=== PATIENT | female | born 1985 | race Caucasian/White ===

== ENCOUNTER 2020-11-10 16:25 | Emergency (ER) | payer BC ==
[~2020-11-10] VITALS: Ht 160 cm; Wt 63.6 kg
[2020-11-10 18:16] LABS: URINE APPEARANCE HAZY; URINE COLOR YELLOW
[2020-11-10 18:17] LABS: URINE BILIRUBIN NEGATIVE (NEGATIVE); URINE BLOOD NEGATIVE (NEGATIVE); URINE GLUCOSE NEGATIVE (NEGATIVE); URINE KETONE 2+ (NEGATIVE); URINE LEUKOCYTE ESTERASE NEGATIVE (NEGATIVE); URINE MUCUS PRESENT (NOT PRESENT); URINE NITRATE NEGATIVE (NEGATIVE); URINE PROTEIN(semi-quant) 1+ mg/dL (NEGATIVE); URINE UROBILINOGEN NORMAL (NORMAL)
[2020-11-10] MEDS ORDERED: VYVANSE50 MG PO (18:17)
[2020-11-10] MEDS ORDERED: SPRINTEC 35 MCG1 TAB PO (18:18)
[2020-11-10 18:19] LABS: BASO # 0.02 (0.02-0.10); EOS # 0.03 (0.04-0.40); EOS % 0.3 % (1.0-5.0); HEMATOCRIT 44.4 % (37.0-47.0); HEMOGLOBIN 14.7 g/dL (12.5-16.0); LYMPH# 2.27 (1.50-4.00); MEAN CELL VOLUME 88 fl (78-100); MEAN CORPUSCULAR HEMOGLOBIN 29 pg (27-31); MEAN CORPUSCULAR HGB CONC 33 g/dL (33-37); MEAN PLATELET VOLUME 10.2 fl (7.4-10.4); MONO # 0.53 (0.20-0.80); NEU # 7.18 (1.40-6.50); PLATELET COUNT 298 K/mm3 (130-400); RED BLOOD COUNT 5.04 M/mm3 (4.10-5.30); RED CELL DISTRIBUTION WIDTH 12.6 % (11.5-14.5)
[2020-11-10 18:24] LABS: ALBUMIN 4.2 g/dL (3.5-5.0); POTASSIUM 4.6 mmol/L (3.5-5.1)
[2020-11-10 18:26] LABS: CALCIUM 10.2 mg/dL (8.3-10.5)
[2020-11-10 18:29] LABS: TOTAL BILIRUBIN 1.8 mg/dL (0.2-1.2)
[2020-11-10] MEDS ORDERED: PERCOCET 325 MG1 TA2 PO (21:21)
[2020-11-10] MEDS ORDERED: MACROBID 100 M100 MG PO (21:23)
[2020-11-10 21:44] VITALS: BP 172/90
== END 2020-11-10 21:44 | disposition home or self-care (01) ==
LOC: ED 16:25
PROVIDERS: Nurse Practitioner
DX: N39.0 Urinary tract infection, site not specified (principal); N28.9 Disorder of kidney and ureter, unspecified; Z87.442 Personal history of urinary calculi; Z20.822 Contact with and (suspected) exposure to COVID-19
CPT/HCPCS: J2405; J3010; J7030; Q9967

== ENCOUNTER 2021-01-20 04:56 | Emergency (ER) | payer BC ==
[~2021-01-20] VITALS: Ht 160 cm; Wt 63.6 kg
[~2021-01-20 04:56] MED LIST: MACROBID 100 M100 MG PO; PERCOCET 325 MG1 TA2 PO; SPRINTEC 35 MCG1 TAB PO; VYVANSE50 MG PO
[2021-01-20] MEDS ORDERED: ATOMOXETINE HCL40 MG PO (05:06)
[2021-01-20] MEDS ORDERED: NEXPLANON68 MG ID (05:49)
[2021-01-20 06:43] LABS: BASO # 0.05 K/mm3 (0.02-0.10); EOS # 0.64 K/mm3 (0.04-0.40); EOS % 7.2 % (1.0-5.0); HEMATOCRIT 45.5 % (37.0-47.0); HEMOGLOBIN 15.2 g/dL (12.5-16.0); LYMPH# 2.78 K/mm3 (1.50-4.00); MEAN CELL VOLUME 89 fl (78-100); MEAN CORPUSCULAR HEMOGLOBIN 30 pg (27-31); MEAN CORPUSCULAR HGB CONC 33 g/dL (33-37); MONO # 0.73 K/mm3 (0.20-0.80); NEU # 4.73 K/mm3 (1.40-6.50); PLATELET COUNT 292 K/mm3 (130-400); RED BLOOD COUNT 5.12 M/mm3 (4.10-5.30); RED CELL DISTRIBUTION WIDTH 12.4 % (11.5-14.5); WHITE BLOOD COUNT 8.9 K/mm3 (4.8-10.8)
[2021-01-20 06:59] LABS: ALBUMIN 4.5 g/dL (3.5-5.0); POTASSIUM 3.8 mmol/L (3.5-5.1)
[2021-01-20 07:00] LABS: CALCIUM 10.1 mg/dL (8.3-10.5)
[2021-01-20 07:01] LABS: TOTAL PROTEIN 7.9 g/dL (6.4-8.3)
[2021-01-20 07:03] LABS: TOTAL BILIRUBIN 2.6 mg/dL (0.2-1.2)
[2021-01-20 07:15] LABS: URINE APPEARANCE HAZY; URINE BILIRUBIN NEGATIVE (NEGATIVE); URINE BLOOD TRACE (NEGATIVE); URINE COLOR YELLOW; URINE GLUCOSE NEGATIVE (NEGATIVE); URINE KETONE NEGATIVE (NEGATIVE); URINE LEUKOCYTE ESTERASE TRACE (NEGATIVE); URINE NITRATE NEGATIVE (NEGATIVE); URINE PROTEIN(semi-quant) TRACE mg/dL (NEGATIVE); URINE UROBILINOGEN NORMAL (NORMAL)
[2021-01-20 07:16] LABS: URINE MUCUS PRESENT (NOT PRESENT)
[2021-01-20 07:30] LABS: D-DIMER 0.17 mg/L FEU (0.15-0.50)
[2021-01-20 08:29] VITALS: BP 123/93
== END 2021-01-20 08:02 | disposition home or self-care (01) ==
LOC: ED 04:56
PROVIDERS: Nurse Practitioner
DX: F41.9 Anxiety disorder, unspecified (principal); F90.9 Attention-deficit hyperactivity disorder, unspecified type; Z20.822 Contact with and (suspected) exposure to COVID-19; Z79.899 Other long term (current) drug therapy

== ENCOUNTER 2021-09-12 13:54 | Emergency (ER) | payer BC ==
[~2021-09-12] VITALS: Ht 160 cm; Wt 68.2 kg
[~2021-09-12 13:54] MED LIST changes: +ATOMOXETINE HCL40 MG PO; +NEXPLANON68 MG ID
[2021-09-12] MEDS ORDERED: ADDERALL 15 MG15 MG PO (14:06)
[2021-09-12] MEDS ORDERED: CEPHALEXIN250 MG PO (14:47)
[2021-09-12 15:15] VITALS: BP 164/109
== END 2021-09-12 15:17 | disposition home or self-care (01) ==
LOC: ED 13:54
DX: L03.114 Cellulitis of left upper limb (principal); L29.8 Other pruritus; Z91.040 Latex allergy status; Z88.1 Allergy status to other antibiotic agents

== ENCOUNTER 2021-11-05 09:20 | Emergency (ER) | payer BC ==
[~2021-11-05] VITALS: Ht 160 cm; Wt 70.5 kg
[~2021-11-05 09:20] MED LIST changes: +ADDERALL 15 MG15 MG PO; +CEPHALEXIN250 MG PO
[2021-11-05 09:28] VITALS: BP 144/109
[2021-11-05 09:51] LABS: BASO # 0.03 K/mm3 (0.02-0.10); EOS % 1.2 % (1.0-5.0); HEMATOCRIT 43.7 % (37.0-47.0); HEMOGLOBIN 14.6 g/dL (12.5-16.0); LYMPH# 1.42 K/mm3 (1.50-4.00); MEAN CELL VOLUME 87 fl (78-100); MEAN CORPUSCULAR HEMOGLOBIN 29 pg (27-31); MEAN CORPUSCULAR HGB CONC 33 g/dL (33-37); MEAN PLATELET VOLUME 9.6 fl (7.4-10.4); MONO # 0.43 K/mm3 (0.20-0.80); NEU # 6.57 K/mm3 (1.40-6.50); PLATELET COUNT 310 K/mm3 (130-400); RED BLOOD COUNT 5.01 M/mm3 (4.10-5.30); RED CELL DISTRIBUTION WIDTH 11.9 % (11.5-14.5); WHITE BLOOD COUNT 8.6 K/mm3 (4.8-10.8)
[2021-11-05 09:56] LABS: ALBUMIN 4.5 g/dL (3.5-5.0)
[2021-11-05 09:57] LABS: POTASSIUM 4.6 mmol/L (3.5-5.1)
[2021-11-05 09:58] LABS: CALCIUM 9.7 mg/dL (8.3-10.5)
[2021-11-05 09:59] LABS: TOTAL PROTEIN 7.5 g/dL (6.4-8.3)
[2021-11-05 10:18] LABS: TOTAL BILIRUBIN 2.2 mg/dL (0.2-1.2)
[2021-11-05] MEDS ORDERED: ZOFRAN ODT4 MG PO (10:56)
== END 2021-11-05 10:50 | disposition home or self-care (01) ==
LOC: ED 09:20
PROVIDERS: Nurse Practitioner
DX: K62.5 Hemorrhage of anus and rectum (principal); Z91.040 Latex allergy status

== ENCOUNTER 2021-12-10 16:29 | Emergency (ER) | payer BC ==
[~2021-12-10] VITALS: Ht 160 cm; Wt 69.4 kg
[~2021-12-10 16:29] MED LIST changes: +ZOFRAN ODT4 MG PO
[2021-12-10] MEDS ORDERED: PROPRANOLOL HYD60 M1 PO (17:33)
[2021-12-10 17:49] VITALS: BP 144/102
== END 2021-12-10 17:46 | disposition home or self-care (01) ==
LOC: ED 16:29
DX: F41.9 Anxiety disorder, unspecified (principal); R03.0 Elevated blood-pressure reading, without diagnosis of hypertension; Z91.040 Latex allergy status

== ENCOUNTER 2022-05-21 09:58 | Emergency (ER) | payer BC ==
[~2022-05-21] VITALS: Ht 160 cm; Wt 78.5 kg
[~2022-05-21 09:58] MED LIST changes: +PROPRANOLOL HYD60 M1 PO
[2022-05-21 11:14] LABS: BASO # 0.03 K/mm3 (0.02-0.10); EOS # 0.08 K/mm3 (0.04-0.40); EOS % 1.1 % (1.0-5.0); HEMOGLOBIN 15.8 g/dL (12.5-16.0); LYMPH# 1.92 K/mm3 (1.50-4.00); MEAN CELL VOLUME 91 fl (78-100); MEAN CORPUSCULAR HEMOGLOBIN 31 pg (27-31); MEAN CORPUSCULAR HGB CONC 34 g/dL (33-37); MEAN PLATELET VOLUME 9.7 fl (7.4-10.4); MONO # 0.59 K/mm3 (0.20-0.80); PLATELET COUNT 259 K/mm3 (130-400); RED BLOOD COUNT 5.15 M/mm3 (4.10-5.30); RED CELL DISTRIBUTION WIDTH 12.5 % (11.5-14.5); WHITE BLOOD COUNT 7.2 K/mm3 (4.8-10.8)
[2022-05-21 11:23] LABS: ALBUMIN 4.4 g/dL (3.5-5.0)
[2022-05-21 11:24] LABS: POTASSIUM 4.5 mmol/L (3.5-5.1); SODIUM 139 mmol/L (136-145)
[2022-05-21 11:26] LABS: GLUCOSE 102 mg/dL (65-105); TOTAL PROTEIN 8.3 g/dL (6.4-8.3)
[2022-05-21 11:27] LABS: CARBON DIOXIDE 24 mmol/L (22-29)
[2022-05-21 11:28] LABS: TOTAL BILIRUBIN 1.2 mg/dL (0.2-1.2)
[2022-05-21 11:31] LABS: AST-SGOT 97 U/L (5-34)
[2022-05-21 11:33] LABS: ALT/SGPT 142 U/L (0-55)
[2022-05-21 11:48] LABS: TROPONIN-I < 0.030 ng/mL (<0.030)
[2022-05-21 13:19] VITALS: BP 131/93
== END 2022-05-21 13:26 | disposition home or self-care (01) ==
LOC: ED 09:58
PROVIDERS: Family Medicine
DX: I16.1 Hypertensive emergency (principal); F90.9 Attention-deficit hyperactivity disorder, unspecified type; R74.01 Elevation of levels of liver transaminase levels; E66.9 Obesity, unspecified; Z68.30 Body mass index [BMI] 30.0-30.9, adult; Z91.040 Latex allergy status
CPT/HCPCS: J0360

== ENCOUNTER → 2022-07-10 | Outpatient (CLI) | payer BC ==
[2022-07-10 14:31] LABS: URINE APPEARANCE HAZY; URINE BILIRUBIN NEGATIVE (NEGATIVE); URINE BLOOD TRACE (NEGATIVE); URINE COLOR YELLOW; URINE GLUCOSE NEGATIVE (NEGATIVE); URINE KETONE 1+ (NEGATIVE); URINE LEUKOCYTE ESTERASE TRACE (NEGATIVE); URINE MUCUS PRESENT (NOT PRESENT); URINE NITRATE NEGATIVE (NEGATIVE); URINE PROTEIN(semi-quant) TRACE (NEGATIVE); URINE UROBILINOGEN NORMAL (NORMAL)
== END ==
LOC: LAB 13:58
PROVIDERS: Family Medicine
DX: R10.9 Unspecified abdominal pain (principal)

== ENCOUNTER 2023-11-11 22:59 | Emergency (ER) | payer SELFPAY ==
[~2023-11-11] VITALS: Ht 160 cm; Wt 90.9 kg
[2023-11-11] MEDS ORDERED: VYVANSE40 MG PO (23:08)
[2023-11-11] MEDS ORDERED: FLUCONAZOLE100 MG PO (23:23)
[2023-11-11] MEDS ORDERED: NYSTATIN-TRIAMC15 GM TP (23:23)
[2023-11-11] MEDS ORDERED: Nystatin 100,000 Units/GM Cream 15 GM TUBE TP ONE (23:30)
[2023-11-11 23:35] VITALS: BP 150/109
== END 2023-11-11 23:36 | disposition home or self-care (01) ==
LOC: ED 22:59
DX: B37.9 Candidiasis, unspecified (principal); L30.3 Infective dermatitis; Z91.040 Latex allergy status